=== PATIENT | female | born 1985 | race Caucasian/White ===

== ENCOUNTER 2017-11-18 12:48 | Emergency (ER) | payer OTHER ==
[2017-11-18] MEDS ORDERED: Sodium Chloride 0.9% 10 ML Syringe FLUSH PRN (13:35)
[2017-11-18] MEDS ORDERED: Sodium Chloride 0.9% 1,000 ML IV ONE ×2 (13:49→15:59)
--- NOTE | 2017-11-18 14:11 | EDM.PDOC ---
ED HPI GENERAL MEDICAL PROBLEM - General Chief Complaint: Abdominal Pain Stated Complaint: abdominal pain Time Seen by Provider: 11/18/17 13:49 Source of Information: Reports: Patient History Limitations: Reports: No Limitations - History of Present Illness INITIAL COMMENTS - FREE TEXT/NARRATIVE: 32-year-old female presents from the [facility] for possible appendicitis. Patient reports she's been expressing "gas pains "for the last week. Reports the pain was previous a band like sensation across her abdomen. She reports over the last 1-2 days she now is experiencing pain localized in the right lower quadrant. Pain is worse with movement. Reports 1 episode of vomiting today and no appetite. No nausea, fevers, dysuria or change in urine odor or color. Patient is a . Diagnosed with a subchorionic hemorrhage around Thanksgiving. She has not had any vaginal bleeding since being diagnosed with a subchorionic. She does not see an dealership manager only a biomedical engineer. Unsure of blood type. No previous surgeries to her abdomen. Right Abdominal Pain Score (Numeric/FACES): 5 - Related Data Allergies Allergy/AdvReac Type Severity Reaction Status Date / Time cefaclor [From Ceclor] Allergy Rash Verified 11/18/17 13:24 Sulfa (Sulfonamide Allergy Rash Verified 11/18/17 13:24 Antibiotics) sulfamethoxazole Allergy Swollen Verified 11/18/17 13:24 [From Bactrim] Tongue trimethoprim [From Bactrim] Allergy Swollen Verified 11/18/17 13:24 Tongue Home Meds: Home Meds Butalb/Acetaminophen/Caffeine [Saspvp-Tqajzfqm-Qhni 50-300-40] 1 tab PO Q6H PRN 11/18/17 [History] Vit #108/Iron/FA [ One Tablet] 1 tab PO DAILY 11/18/17 [History ] Past Medical History HEENT History: Reports: Impaired Vision, Sinusitis Other HEENT History: wears eyeglasses Genitourinary History: Reports: UTI, Recurrent 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: Neurological History: Reports: Headaches, Chronic, Migraines Psychiatric History: Reports: Anxiety - Infectious Disease History Infectious Disease History: Reports: Chicken Pox - Past Surgical History HEENT Surgical History: Reports: Tonsillectomy Social & Family History - Tobacco Use Smoking Status *Q: Never Smoker Second Hand Smoke Exposure: No - Caffeine Use Caffeine Use: Reports: None - Recreational Drug Use Recreational Drug Use: No ED ROS GENERAL - Review of Systems Review Of Systems: See Below Constitutional: Denies: Fever GI/Abdominal: Reports: Abdominal Pain (RLQ), Vomiting (x1 episode). Denies: Nausea : Reports: No Symptoms, Other (no vaginal bleeding) ED EXAM, GI/ABD - Physical Exam Exam: See Below Exam Limited By: No Limitations General Appearance: Alert, WD/WN, No Apparent Distress Respiratory/Chest: No Respiratory Distress, Lungs Clear Cardiovascular: Normal Peripheral Pulses, Regular Rate, Rhythm, No Murmur GI/Abdominal Exam: Normal Bowel Sounds, Guarding, Rebound, Tender (RLQ), Other ( gravid uterus; heart tones in the 140s) Neurological: Alert, Oriented, Normal Cognition Psychiatric: Normal Affect, Normal Mood Skin Exam: Warm, Dry, Normal Color Course - Vital Signs Last Recorded V/S: Last Vital Signs Temp 36.4 C 11/18/17 13:00 Pulse 100 11/18/17 13:00 Resp 18 11/18/17 13:00 BP 130/75 11/18/17 13:00 Pulse Ox 97 11/18/17 13:00 - Orders/Labs/Meds Orders: Active Orders 24 hr Category Date Time Status Heart Tones [RC] ASDIRECTED Care 11/18/17 13:48 Inactive Peripheral IV Care [RC] . DIRECTED Care 11/18/17 13:35 Active ABO/RH TYPE [BBK] Stat Lab 11/18/17 13:15 Results CULTURE URINE [RM] Stat Lab 11/18/17 13:35 Received PATIENT RETYPE [BBK] Stat Lab 11/18/17 13:15 Results Piperacillin/Tazobactam [Zosyn] 3.375 gm Med 11/18/17 15:26 Active Sodium Chloride 0.9% [Normal Saline] 100 ml IV NOW Sodium Chloride 0.9% [Normal Saline] 1,000 ml Med 11/18/17 15:59 Ordered IV ONETIME Sodium Chloride 0.9% [Saline Flush] Med 11/18/17 13:35 Active 10 ml FLUSH ASDIRECTED PRN Peripheral IV Insertion Adult [OM.PC] Routine Oth 11/18/17 13:35 Ordered Medication Orders Piperacillin Sod/Tazobactam (Sod 3.375 gm/ Sodium Chloride) 100 mls @ 25 mls/ hr IV NOW STA Stop: 11/18/17 19:08 Last Admin: 11/18/17 15:47 Dose: 25 mls/hr Sodium Chloride (Normal Saline) 1,000 mls @ 100 mls/hr IV ONETIME ONE Stop: 11/19/17 01:58 Sodium Chloride (Saline Flush) 10 ml FLUSH ASDIRECTED PRN PRN Reason: Keep Vein Open Last Admin: 11/18/17 13:15 Dose: 10 ml Labs: Laboratory Tests 11/18/17 11/18/17 11/18/17 Range/Units 13:15 13:15 13:15 WBC 24.16 H (3.98-10.04) K/mm3 RBC 4.38 (3.98-5.22) M/mm3 Hgb 12.5 (11.2-15.7) gm/L Hct 37.3 (34.1-44.9) % MCV 85.2 (79.4-94.8) fl MCH 28.5 (25.6-32.2) pg MCHC 33.5 (32.2-35.5) g/dl RDW Std Deviation 40.2 (36.4-46.3) fL Plt Count 367 (182-369) K/mm3 MPV 9.0 L (9.4-12.3) fl Neutrophils % (Manual) 81 H (40-60) % Band Neutrophils % 0 (0-10) % Lymphocytes % (Manual) 17 L (20-40) % Atypical Lymphs % 0 % Monocytes % (Manual) 2 (2-10) % Eosinophils % (Manual) 0 L (0.7-5.8) % Basophils % (Manual) 0 L (0.1-1.2) Platelet Estimate Adequate RBC Morph Comment Normal Sodium 140 (136-145) mEq/L Potassium 3.6 (3.5-5.1) mEq/L Chloride 103 (98-107) mEq/L Carbon Dioxide 22 (21-32) mEq/L Anion Gap 18.6 H (5-15) BUN 5 L (7-18) mg/dL Creatinine 0.7 (0.55-1.02) mg/dL Est Cr Clr Drug Dosing 122.81 mL/min Estimated GFR (MDRD) > 60 (>60) mL/min BUN/Creatinine Ratio 7.1 L (14-18) Glucose 89 (74-106) mg/dL Calcium 9.3 (8.5-10.1) mg/dL Total Bilirubin 0.5 (0.2-1.0) mg/dL AST 15 (15-37) U/L ALT 47 (14-59) U/L Alkaline Phosphatase 72 (46-116) U/L C-Reactive Protein 12.2 H* (<1.0) mg/dL Total Protein 7.8 (6.4-8.2) g/dl Albumin 3.2 L (3.4-5.0) g/dl Globulin 4.6 gm/dL Albumin/Globulin Ratio 0.7 L (1-2) Urine Color (Yellow) Urine Appearance (Clear) Urine pH (5.0-8.0) Ur Specific [place] (1.005-1.030) Urine Protein (Negative) Urine Glucose (UA) (Negative) Urine Ketones (Negative) Urine Occult Blood (Negative) Urine Nitrite (Negative) Urine Bilirubin (Negative) Urine Urobilinogen (0.2-1.0) Ur Leukocyte Esterase (Negative) Urine RBC (0-5) /hpf Urine WBC (0-5) /hpf Ur Epithelial Cells (0-5) /hpf Amorphous Sediment (NOT SEEN) /hpf Urine Bacteria (FEW) /hpf Urine Mucus (FEW) /hpf Blood Type O POSITIVE 11/18/17 Range/Units 13:35 WBC (3.98-10.04) K/mm3 RBC (3.98-5.22) M/mm3 Hgb (11.2-15.7) gm/L Hct (34.1-44.9) % MCV (79.4-94.8) fl MCH (25.6-32.2) pg MCHC (32.2-35.5) g/dl RDW Std Deviation (36.4-46.3) fL Plt Count (182-369) K/mm3 MPV (9.4-12.3) fl Neutrophils % (Manual) (40-60) % Band Neutrophils % (0-10) % Lymphocytes % (Manual) (20-40) % Atypical Lymphs % % Monocytes % (Manual) (2-10) % Eosinophils % (Manual) (0.7-5.8) % Basophils % (Manual) (0.1-1.2) Platelet Estimate RBC Morph Comment Sodium (136-145) mEq/L Potassium (3.5-5.1) mEq/L Chloride (98-107) mEq/L Carbon Dioxide (21-32) mEq/L Anion Gap (5-15) BUN (7-18) mg/dL Creatinine (0.55-1.02) mg/dL Est Cr Clr Drug Dosing mL/min Estimated GFR (MDRD) (>60) mL/min BUN/Creatinine Ratio (14-18) Glucose (74-106) mg/dL Calcium (8.5-10.1) mg/dL Total Bilirubin (0.2-1.0) mg/dL AST (15-37) U/L ALT (14-59) U/L Alkaline Phosphatase (46-116) U/L C-Reactive Protein (<1.0) mg/dL Total Protein (6.4-8.2) g/dl Albumin (3.4-5.0) g/dl Globulin gm/dL Albumin/Globulin Ratio (1-2) Urine Color Yellow (Yellow) Urine Appearance Slt cloudy H (Clear) Urine pH 6.0 (5.0-8.0) Ur Specific [place] 1.020 (1.005-1.030) Urine Protein Negative (Negative) Urine Glucose (UA) Negative (Negative) Urine Ketones 1+ H (Negative) Urine Occult Blood Negative (Negative) Urine Nitrite Negative (Negative) Urine Bilirubin Negative (Negative) Urine Urobilinogen 0.2 (0.2-1.0) Ur Leukocyte Esterase 1+ H (Negative) Urine RBC 0-5 (0-5) /hpf Urine WBC 5-10 H (0-5) /hpf Ur Epithelial Cells 0-5 (0-5) /hpf Amorphous Sediment Moderate H (NOT SEEN) /hpf Urine Bacteria Many H (FEW) /hpf Urine Mucus Not seen (FEW) /hpf Blood Type Meds: Medications Generic Name Dose Route Start Last Admin Trade Name Freq PRN Reason Stop Dose Admin Piperacillin Sod/Tazobactam 100 mls @ 25 mls/hr 11/18/17 15:26 11/18/17 15:47 Sod 3.375 gm/ Sodium Chloride IV 11/18/17 19:08 25 mls/hr NOW STA Administration Sodium Chloride 1,000 mls @ 100 mls/hr 11/18/17 15:59 Normal Saline IV 11/19/17 01:58 ONETIME ONE Sodium Chloride 10 ml 11/18/17 13:35 11/18/17 13:15 Saline Flush FLUSH 10 ml ASDIRECTED PRN Administration Keep Vein Open Discontinued Medications Generic Name Dose Route Start Last Admin Trade Name [place] PRN Reason Stop Dose Admin Sodium Chloride 1,000 mls @ 999 mls/hr 11/18/17 13:49 11/18/17 14:24 Normal Saline IV 11/18/17 14:49 999 mls/hr ONETIME ONE Administration Piperacillin Sod/Tazobactam 100 mls @ 25 mls/hr 11/18/17 15:09 Sod 3.375 gm/ Sodium Chloride IV 11/18/17 19:08 NOW STA - Radiology Interpretation Free Text/Narrative:: Limited abdominal ultrasound: Multiple real-time images were obtained of the right lower abdomen. Appendix is felt to be visualized and appears slightly prominent size at 1.0 cm. Technologist's note states this area is tender when compressed. Impression: 1. Findings suspicious for appendicitis. - Re-Assessments/Exams Free Text/Narrative Re-Assessment/Exam: 11/18/17 14:[address] Lai, ob client relationship manager, recommended discussing with general surgery. CT ok during Recommended heart tones pre and post op. 11/18/17 15:45 Discussed ultrasound results with the patient. Likely has appendicitis. Will transfer to [place] for higher level of care, concern surgeon client relationship manager is unwell. Patient elects to go to [facility]. IV zosyn started. Allergies to sulfa and cephalosporins. 11/18/17 16:[address] Paige, surgery at [facility], agrees to accept the patient. Dr. Ho in the [facility] ER aware of the patient. Departure - Departure Time of Disposition: 16:20 Disposition: DC[facility] to [facility] Condition: Fair Clinical Impression: Appendicitis, - Discharge Information Referrals: PCP,Not In Area [Primary Care Provider] - Forms: ED Department Discharge Additional Instructions: Patient to go by ambulance to [facility] in [place]. She is to go through the ER. Dr. Paige and Dr. Ho accepting. - My Orders Last 24 Hours: My Active Orders 11/18/17 13:15 ABO/RH TYPE [BBK] Stat PATIENT RETYPE [BBK] Stat 11/18/17 13:35 Peripheral IV Care [RC] . DIRECTED CULTURE URINE [RM] Stat Sodium Chloride 0.9% [Saline Flush] 10 ml FLUSH ASDIRECTED PRN Peripheral IV Insertion Adult [OM.PC] Routine 11/18/17 13:48 Heart Tones [RC] ASDIRECTED 11/18/17 15:26 Piperacillin/Tazobactam [Zosyn] 3.375 gm Sodium Chloride 0.9% [Normal Saline] 100 ml IV NOW 11/18/17 15:59 Sodium Chloride 0.9% [Normal Saline] 1,000 ml IV ONETIME - Assessment/Plan Last 24 Hours: My Active Orders 11/18/17 13:15 ABO/RH TYPE [BBK] Stat PATIENT RETYPE [BBK] Stat 11/18/17 13:35 Peripheral IV Care [RC] . DIRECTED CULTURE URINE [RM] Stat Sodium Chloride 0.9% [Saline Flush] 10 ml FLUSH ASDIRECTED PRN Peripheral IV Insertion Adult [OM.PC] Routine 11/18/17 13:48 Heart Tones [RC] ASDIRECTED 11/18/17 15:26 Piperacillin/Tazobactam [Zosyn] 3.375 gm Sodium Chloride 0.9% [Normal Saline] 100 ml IV NOW 11/18/17 15:59 Sodium Chloride 0.9% [Normal Saline] 1,000 ml IV ONETIME
--- NOTE | 2017-11-18 15:04 | US ---
Limited abdominal ultrasound: Multiple real-time images were obtained of the right lower abdomen. Appendix is felt to be visualized and appears slightly prominent size at 1.0 cm. Technologist's note states this area is tender when compressed. Impression: 1. Findings suspicious for appendicitis. Diagnostic code #5
[2017-11-18] MEDS ORDERED: Piperacillin/Tazobactam 3.375 GM in Sodium Chloride 0.9% 100 ML IV STA ×2 (15:09→15:26)
[2017-11-18] MEDS ORDERED: Metoclopramide 10 MG/2 ML SDV IVPUSH ONE (17:00)
[2017-11-18] MEDS ORDERED: Metoclopramide 10 MG/2 ML SDV ONE (17:07)
== END 2017-11-18 17:15 ==
LOC: JD.ED 12:48 → EDSTATUS 12:50 → JD.ED 17:15
DX: O99.612 Diseases of the digestive system complicating pregnancy, second trimester (principal); K37 Unspecified appendicitis; Z3A.19 19 weeks gestation of pregnancy; Z88.2 Allergy status to sulfonamides; Z88.1 Allergy status to other antibiotic agents
CPT/HCPCS: 36415; 76705; 80053; 81001; 85025; 86140; 86900; 86901; 87086; 96361; 96365; 96375; 99285; J2543; J2765; J7030; J7040; J7050; 99284

== ENCOUNTER 2023-04-03 09:14 | Inpatient (IN) | payer BC ==
[~2023-04-03 09:14] MED LIST: Ropivacaine 0.2% PF 2 MG/ML 20 ML SDV ONE
[2023-04-03] MEDS ORDERED: Ondansetron 4 MG/2 ML SDV IVPUSH PRN (09:16)
[2023-04-03] MEDS ORDERED: Nalbuphine 10 MG/0.5 ML Syringe IVPUSH PRN (09:16)
[2023-04-03] MEDS ORDERED: Sodium Chloride 0.9% 10 ML Syringe FLUSH PRN (09:16)
[2023-04-03] MEDS ORDERED: Oxytocin/Lactated Ringers 10 UNIT/1,000 ML BAG IV SCH ×2 (09:30)
[2023-04-03 09:53] LABS: HEMATOCRIT 36.2 % (34.1-44.9); HEMOGLOBIN 11.9 gm/dl (11.2-15.7); MEAN CORPUSCULAR HEMOGLOBIN 27.2 pg (25.6-32.2); MEAN CORPUSCULAR HGB CONC 32.9 g/dl (32.2-35.5); MEAN CORPUSCULAR VOLUME 82.8 fl (79.4-94.8); MEAN PLATELET VOLUME 9.7 fl (9.4-12.3); PLATELET COUNT,PLT 308 K/mm3 (182-369); RED BLOOD CELL COUNT 4.37 M/mm3 (3.98-5.22); WHITE BLOOD CELL COUNT,WBC 12.56 K/mm3 (3.98-10.04)
[2023-04-03] MEDS: Lactated Ringers 1,000 ML IV SCH ×2 (09:57→18:34)
[2023-04-03 10:11] LABS: CREATININE 0.8 mg/dL (0.55-1.02); EST CRCL DRUG DOSING (CG) 102.58 mL/min
[2023-04-03] MEDS ORDERED: fentaNYL 100 MCG/2 ML SDV EPIDUR PRN (10:54)
[2023-04-03] MEDS ORDERED: diphenhydrAMINE 50 MG/ML SDV IVPUSH PRN (10:54)
[2023-04-03] MEDS ORDERED: ePHEDrine 50 MG/ML SDV IVPUSH PRN (10:54)
[2023-04-03] MEDS ORDERED: Bupivacaine/fentaNYL/NS 100 ML Bag EPIDUR PRN (10:54)
[2023-04-03 11:15] LABS: PROTEIN,URINE RANDOM < 6.0 mg/dL (0.0-11.8)
[2023-04-03] MEDS ORDERED: Misoprostol 200 MCG Tab ONE (20:35)
[2023-04-03] MEDS ORDERED: Misoprostol 200 MCG Tab PO STA (20:38)
[2023-04-03] MEDS ORDERED: Carboprost Tromethamine 250 MCG/1 ML Amp IM ONE (20:39)
[2023-04-03] MEDS ORDERED: Carboprost Tromethamine 250 MCG/1 ML Amp ONE (20:39)
[2023-04-03] MEDS ORDERED: Clindamycin Phosphate in D5W 900 MG in Premix Bag 1 BAG IV ONE ×2 (20:55)
[2023-04-03] MEDS ORDERED: Sodium Chloride 0.9% 10 ML Syringe FLUSH SCH (21:00)
[2023-04-03] MEDS ORDERED: Acetaminophen 325 MG Tab PO PRN (21:02)
[2023-04-03] MEDS ORDERED: Benzocaine/Menthol 20%-0.5% Spray 78 GM Cannister TOP PRN (21:02)
[2023-04-03] MEDS ORDERED: Atropine/Diphenoxylate 0.025-2.5 MG Tab PO PRN (21:02)
[2023-04-03] MEDS ORDERED: Docusate Sodium 100 MG Cap PO PRN (21:02)
[2023-04-03] MEDS ORDERED: Witch Hazel Medicated Pads 40/Jar TOP PRN (21:02)
[2023-04-03] MEDS: Ibuprofen 600 MG Tab PO PRN (21:30)
[2023-04-04] MEDS: Ibuprofen 600 MG Tab PO PRN ×3 (05:01→22:00)
[2023-04-05] MEDS: Ibuprofen 600 MG Tab PO PRN (10:34)
== END 2023-04-05 12:28 | disposition home or self-care (01) | DRG 560 ==
LOC: JD.OBCHECK 09:14 → JD.OB 09:14 → JD.OBCHECK 09:16 → JD.OB 09:17 → OBSVTOIN 20:29 → JD.OB 20:30
PROVIDERS: ADMIT Obstetrics & Gynecology; ATTEND Obstetrics & Gynecology
PROC: 10E0XZZ Delivery of Products of Conception, External Approach (ICD-10-PCS; principal; 2023-04-03)
PROC: 10907ZC Drainage of Amniotic Fluid, Therapeutic from Products of Conception, Via Natural or Artificial Opening (ICD-10-PCS; 2023-04-03)
PROC: 3E033VJ Introduction of Other Hormone into Peripheral Vein, Percutaneous Approach (ICD-10-PCS; 2023-04-03)
PROC: 3E0P7VZ Introduction of Hormone into Female Reproductive, Via Natural or Artificial Opening (ICD-10-PCS; 2023-04-03)
PROC: 0KQM0ZZ Repair Perineum Muscle, Open Approach (ICD-10-PCS; 2023-04-03)
DX: O13.4 Gestational [pregnancy-induced] hypertension without significant proteinuria, complicating childbirth (principal); O24.420 Gestational diabetes mellitus in childbirth, diet controlled; O70.1 Second degree perineal laceration during delivery; O72.1 Other immediate postpartum hemorrhage; Z3A.37 37 weeks gestation of pregnancy; Z37.0 Single live birth; Z88.2 Allergy status to sulfonamides; Z88.8 Allergy status to other drugs, medicaments and biological substances; Z90.49 Acquired absence of other specified parts of digestive tract; Z90.89 Acquired absence of other organs
CPT/HCPCS: 36415; 51702; 59025; 59409; 82565; 82570; 82947; 84156; 84450; 84460; 85027; 86592; 86850; 86900; 86901; A9270-GY; J2590; J2795; J3490; J7120